=== PATIENT | female | born 1995 | race Caucasian/White ===

== ENCOUNTER 2018-02-03 11:12 | Emergency (ER) | payer MEDICAID ==
[2018-02-03] MEDS ORDERED: NS 1,000 ML IV ONE (11:53)
[2018-02-03] MEDS ORDERED: ONDANSETRON 4 MG/2 ML VIAL IVP ONE (11:54)
[2018-02-03 12:03] LABS: PLATELET COUNT 357 10^3/uL (150-400)
--- NOTE | 2018-02-03 12:40 | EDPHY ---
H & P Stated Complaint: migraine thurs/continued n/v uterine cramping/menstruating now Time Seen by Provider: 02/03/18 12:29 HPI/ROS: CLINICAL IMPRESSION: Nausea, vomiting, diarrhea, menstrual cramps ASSESSMENT/PLAN: 23-year-old female presents to the emergency department with approximately 24 hr of nausea, vomiting, menstrual cramps, diarrhea. Patient received IV fluids and antiemetics with significant improvement in her symptoms. Labs are reassuring with no leukocytosis, electrolyte imbalance, transaminitis, acute renal insufficiency. Urine dip shows no evidence of UTI, and patient is not . Abdomen is soft with no focal peritoneal findings or suggestion of acute surgical process. Patient is currently on her menstrual cycle. No clinical indication for emergent pelvic ultrasound today. Toradol given for pain, encouraged primary care and gynecologic follow-up for chronic menstrual cramping. Patient prefers to see her primary care in [place]. Zofran prescribed. Oral rehydration discussed, warning signs returned etiology discharge. DIFFERENTIAL DX: Differential includes but not limited to acute gastroenteritis, dehydration, menstrual cramping, UTI, pyelonephritis, CHIEF COMPLAINT: Abdominal pain, nausea, vomiting, menstrual cramps HPI: 23-year-old female with past medical history of chronic menstrual cramps presents to the emergency department 24 hr of nausea, vomiting, diarrhea and cramping in the setting of a normal menstrual cycle. Patient denies abnormal discharge or concern for . No UTI symptoms. No flank pain. No reported fever or chills. No recent travel, recent antibiotics, new medications. She admits that she does get migraines as well and was having a headache over the last couple days which improved with [id number] medications and she currently does not have a headache. She is originally from [place] in follows with primary care and gynecology there. PMH: Chronic dysmenorrhea, occasional migraines Pertinent Past Surgical History: None reported Family History: Noncontributory Social History: [employer] student ROS: All other systems negative Constitutional: No fever, no chills, +appetite change. Eyes: No discharge, vision change ENT: No sore throat, congestion, ear pain. Cardiovascular: No chest pain, no palpitations. Respiratory: No cough, no shortness of breath. Gastrointestinal: No constipation, no bloody stools Genitourinary: No hematuria, dysuria, flank pain, pelvic pain Musculoskeletal: No back pain, joint swelling, joint pain, myalgias. Skin: No rashes, color change. Neurological: No headache, dizziness, weakness. PHYSICAL EXAM: General Appearance: Alert, oriented, appropriate, cooperative, NAD, well hydrated, non-toxic appearing, VSS, no hypoxia. HEENT: Oropharynx clear is no erythema or exudates, no tonsillar hypertrophy or asymmetry. Dentition without abnormality. Respiratory: There are no retractions, lungs are clear to auscultation. Cardiac: Regular rate and rhythm, no murmurs or gallops. Gastrointestinal: Abdomen is soft, nontender, bowel sounds normal, no masses/ hernia, no rigidity, guarding or focal peritoneal findings. Neurological: Alert and oriented x 3, CN 2-12 grossly intact, normal gait no ataxia, DTR's intact, normal sensation and strength Skin: Warm, dry, no rashes, no nodules on palpation. Musculoskeletal: Extremities are symmetrical, full range of motion, no tenderness, deformity, swelling, or erythema. Psychiatric: Patient is oriented X 3, there is no agitation. MEDICAL DECISION MAKING: Patient was seen independently by established practice protocols. Secondary supervising physician at time of evaluation was Dr. Richards. Diagnosis: Dysmenorrhea, nausea vomiting and diarrhea. New, requires workup Summary: See Assessment and Plan for summary of ED visit Clinical lab tests: ordered / reviewed. Independent visualization of images, tracing, or specimens: None obtained. Risk of comlications, morbidity, mortality: Presenting problem moderate Diagnostic procedures moderate Management Options moderate Patient Progress: Improved. - Personal History LMP (Females 10-55): Now Current Tetanus Diphtheria and Acellular Pertussis (TDAP): Unsure - Medical/Surgical History Hx Asthma: No Hx Chronic Respiratory Disease: No Hx Diabetes: No Hx Cardiac Disease: No Hx Renal Disease: No Hx Cirrhosis: No Hx Alcoholism: No Hx HIV/AIDS: No Hx Splenectomy or Spleen Trauma: No Other PMH: migraine - Social History Smoking Status: Current every day smoker Constitutional: Initial Vital Signs Temperature (C) 36.7 C 02/03/18 11:15 Heart Rate 61 02/03/18 11:15 Respiratory Rate 17 02/03/18 11:15 Blood Pressure 117/97 H 02/03/18 11:15 O2 Sat (%) 98 02/03/18 11:15 O2 Delivery Mode Room Air Allergies/Adverse Reactions: No Known Allergies Allergy (Unverified 02/03/18 11:15) Home Medications: Medication Instructions Recorded Ondansetron Odt [Zofran Odt] 4 mg PO Q4PRN PRN #7 tab 02/03/18 Medical Decision Making - Data Points Laboratory Results: Laboratory Results 02/03/18 11:45 02/03/18 11:45 02/03/18 02/03/18 02/03/18 12:43 12:43 11:45 WBC RBC Hgb Hct MCV MCH MCHC RDW Plt Count MPV Neut % (Auto) Lymph % (Auto) [place] % (Auto) Eos % (Auto) Baso % (Auto) Nucleat RBC Rel Count Absolute Neuts (auto) Absolute Lymphs (auto) Absolute Monos (auto) Absolute Eos (auto) Absolute Basos (auto) Absolute Nucleated RBC Immature Gran % Immature Gran # Sodium 141 mEq/L mEq/L (135-145) Potassium 3.9 mEq/L mEq/L (3.3-5.0) Chloride 105 mEq/L mEq/L (97-110) Carbon Dioxide 23 mEq/l mEq/l (22-31) Anion Gap 13 mEq/L mEq/L (6-14) BUN 12 mg/dL mg/dL (7-23) Creatinine 0.9 mg/dL mg/dL (0.6-1.0) Estimated GFR > 60 Glucose 107 mg/dL H mg/dL (70-100) Calcium 9.8 mg/dL mg/dL (8.5-10.4) Urine Color YELLOW Urine Appearance CLEAR Urine pH 7.0 (5.0-7.5) Ur Specific Pione[place] 1.011 (1.002-1.030) Urine Protein 1+ H (NEGATIVE) Urine Ketones 1+ H (NEGATIVE) Urine Blood 1+ H (NEGATIVE) Urine Nitrate NEGATIVE (NEGATIVE) Urine Bilirubin NEGATIVE (NEGATIVE) Urine Urobilinogen NEGATIVE EU EU (0.2-1.0) Ur Leukocyte Esterase NEGATIVE (NEGATIVE) Urine RBC 1-3 /hpf /hpf (0-3) Urine WBC 1-3 /hpf /hpf (0-3) Ur Epithelial Cells TRACE /lpf /lpf (NONE-1+) Urine Bacteria TRACE /hpf H /hpf (NONE SEEN) Urine Mucus TRACE /lpf /lpf (NONE-1+) Urine Glucose NEGATIVE (NEGATIVE) Urine Test NEGATIVE 02/03/18 11:45 WBC 9.12 10^3/uL 10^3/uL (3.80-9.50) RBC 5.11 10^6/uL 10^6/uL (4.18-5.33) Hgb 13.5 g/dL g/dL (12.6-16.3) Hct 41.7 % % (38.0-47.0) MCV 81.6 fL fL (81.5-99.8) MCH 26.4 pg L pg (27.9-34.1) MCHC 32.4 g/dL g/dL (32.4-36.7) RDW 14.9 % % (11.5-15.2) Plt Count 357 10^3/uL 10^3/uL (150-400) MPV 9.0 fL fL (8.7-11.7) Neut % (Auto) 85.9 % H % (39.3-74.2) Lymph % (Auto) 9.9 % L % (15.0-45.0) [place] % (Auto) 3.3 % L % (4.5-13.0) Eos % (Auto) 0.2 % L % (0.6-7.6) Baso % (Auto) 0.4 % % (0.3-1.7) Nucleat RBC Rel Count 0.0 % % (0.0-0.2) Absolute Neuts (auto) 7.83 10^3/uL H 10^3/uL (1.70-6.50) Absolute Lymphs (auto) 0.90 10^3/uL L 10^3/uL (1.00-3.00) Absolute Monos (auto) 0.30 10^3/uL 10^3/uL (0.30-0.80) Absolute Eos (auto) 0.02 10^3/uL L 10^3/uL (0.03-0.40) Absolute Basos (auto) 0.04 10^3/uL 10^3/uL (0.02-0.10) Absolute Nucleated RBC 0.00 10^3/uL 10^3/uL (0-0.01) Immature Gran % 0.3 % % (0.0-1.1) Immature Gran # 0.03 10^3/uL 10^3/uL (0.00-0.10) Sodium Potassium Chloride Carbon Dioxide Anion Gap BUN Creatinine Estimated GFR Glucose Calcium Urine Color Urine Appearance Urine pH Ur Specific Pione[place] Urine Protein Urine Ketones Urine Blood Urine Nitrate Urine Bilirubin Urine Urobilinogen Ur Leukocyte Esterase Urine RBC Urine WBC Ur Epithelial Cells Urine Bacteria Urine Mucus Urine Glucose Urine Test Medications Given: Discontinued Medications Sodium Chloride (Ns) 1,000 mls @ 0 mls/hr IV ONCE ONE PRN Reason: Wide Open Stop: 02/03/18 11:54 Last Admin: 02/03/18 11:57 Dose: 1,000 mls Ketorolac Tromethamine (Toradol) 15 mg IVP EDNOW ONE Stop: 02/03/18 12:52 Last Admin: 02/03/18 12:53 Dose: 15 mg Ondansetron HCl (Zofran) 4 mg IVP EDNOW ONE Stop: 02/03/18 11:55 Last Admin: 02/03/18 11:57 Dose: 4 mg Departure - Departure Disposition: [facility] IP Clinical Impression: Nausea vomiting and diarrhea, Menstrual cramps Condition: Good Instructions: Dysmenorrhea (ED), Acute Nausea and Vomiting (ED) Additional Instructions: DISCHARGE INSTRUCTIONS FROM YOUR DOCTOR Thank you for visiting our emergency department today. Please keep in mind that discharge from the emergency department does not mean that there is nothing wrong - it simply means that we have not identified an emergency condition that requires further evaluation or treatment in the hospital. You should always plan to follow up with primary care for re-evaluation of your condition in the next 2-3 days. If you have been referred to a specialist, please call as soon as possible (today or tomorrow) to schedule your follow up appointment at the appropriate time. Lab work today was reassuring. On exam, there are no clinical concerns for an acute surgical abdomen or need for emergent CT or ultrasound. A prescription for nausea medication was provided. Please stay well-hydrated. Follow up with her regular application dba in [place]. Return to the emergency department for worsening abdominal pain, vomiting, bloody stools, development of fever greater than 100.4, inability to eat, or any other concerns. People present with illnesses and injuries in different ways, and it is always possible that we have missed something. You may always return for re-evaluation if symptoms worsen or if they are not improving or if you develop new/different symptoms. Again, thank you for choosing our emergency department. We hope that you feel better. Referrals: NONE *PRIMARY CARE P,. [Primary Care Provider] - As per Instructions [facility] [Clinic] - As per Instructions Prescriptions: Ondansetron Odt [Zofran Odt] 4 mg PO Q4PRN PRN #7 tab PRN Reason: Nausea/Vomiting, Use 1st
[2018-02-03] MEDS ORDERED: KETOROLAC 15 MG/1 ML SDV IVP ONE (12:51)
[2018-02-03] MEDS ORDERED: KETOROLAC 15 MG/1 ML SDV ONE (12:51)
[2018-02-03 13:31] VITALS: BP 104/66
== END 2018-02-03 13:31 ==
DX: R11.2 Nausea with vomiting, unspecified (principal); R19.7 Diarrhea, unspecified; E86.9 Volume depletion, unspecified; F17.200 Nicotine dependence, unspecified, uncomplicated
CPT/HCPCS: 96374; J1885; J2405